=== PATIENT | female | born 1990 | race Caucasian/White ===

== ENCOUNTER 2016-08-14 08:32 | Outpatient (CLI) | payer OTHER | END 2016-08-14 08:33 | disposition home or self-care (01) | DX: M22.42 Chondromalacia patellae, left knee (principal) ==

== ENCOUNTER 2017-12-29 19:54 | Emergency (ER) | payer OTHER ==
[2017-12-29 20:16] LABS: BILIRUBIN,URINE NEGATIVE (NEGATIVE); GLUCOSE, URINE (UA) NEGATIVE (NEGATIVE); KETONES,URINE (UA) NEGATIVE (NEGATIVE); LEUKOCYTE ESTERASE, URINE SMALL (NEGATIVE); NITRITE,URINE POSITIVE (NEGATIVE); OCCULT BLOOD,URINE LARGE (NEGATIVE); PROTEIN,URINE 100 mg/dL (NEGATIVE); UROBILINOGEN,URINE 0.2 (NORMAL) E.U./dL (NORMAL)
[2017-12-29 20:30] LABS: CLARITY,URINE HAZY (CLEAR)
[2017-12-29 20:31] LABS: HCG UR QUAL NEGATIVE
[2017-12-29 20:32] LABS: BACTERIA,URINE Few /HPF (None Seen); RBC,URINE TNTC /HPF (0-5); SQUAMOUS EPITHELIAL CELL,UR FEW Squamous (<= Few)
[2017-12-29] MEDS ORDERED: cefTRIAXone 1 GM VIAL IM STA (21:00)
[2017-12-29] MEDS ORDERED: LIDOCAINE 1% 2 ML VIAL SUBQ ONE (21:00)
--- NOTE | 2017-12-29 21:02 | ED Physician Documentation ---
PD HPI FEMALE - Stated complaint Stated Complaint: FEM G/NAUSEATED - Chief complaint Chief Complaint: UTI - History obtained from History obtained from: Patient - History of Present Illness Timing - onset: How many days ago (4) Timing - duration: Days (4) Timing - details: Abrupt onset Pain level max: 7 Pain level max: 5 Associated symptoms: Fever (chills), Dysuria, Urinary frequency, Hematuria Contributing factors: No: , Exposed to STD Similar symptoms before: Diagnosis (UTI) Review of Systems Constitutional: denies: Fever Nose: denies: Rhinorrhea / runny nose, Congestion Skin: denies: Rash Musculoskeletal: denies: Neck pain, Back pain Neurologic: denies: Headache PD PAST MEDICAL HISTORY - Past Medical History Past Medical History: Yes Cardiovascular: None Respiratory: None Endocrine/Autoimmune: None GI: None : None HEENT: None Psych: None Musculoskeletal: Other Derm: None - Past Surgical History Past Surgical History: Yes General: Cholecystectomy, Appendectomy HEENT: Tonsil/Adenoidectomy - Present Medications Home Medications: Ambulatory Orders Medication Instructions Recorded Confirmed Acetaminophen [Tylenol] 650 mg PO Q6H PRN 04/17/14 04/19/14 Cetirizine HCl [Zyrtec] 10 mg PO DAILY 04/17/14 04/19/14 Multivitamin [Multivitamins] 1 each PO DAILY 04/17/14 04/19/14 Ibuprofen [Motrin] 400 mg PO Q6H 04/19/14 04/19/14 Cefdinir 300 mg PO BID #20 capsule 12/29/17 - Allergies Allergies/Adverse Reactions: Allergies Allergy/AdvReac Type Severity Reaction Status Date / Time clindamycin Allergy Anaphylaxis Verified 12/29/17 20:03 Penicillins Allergy Unknown Verified 12/29/17 20:03 Sulfa (Sulfonamide Allergy Itching Verified 12/29/17 20:03 Antibiotics) - Social History Does the pt smoke?: Yes Smoking Status: Current every day smoker Does the pt drink ETOH?: Yes Does the pt have substance abuse?: No - Immunizations Immunizations are current?: Yes - POLST Patient has POLST: No PD ED PE NORMAL - Vitals Vital signs reviewed: Yes - General General: Alert and oriented X 3, No acute distress - HEENT HEENT: Moist mucous membranes - Neck Neck: Supple, no meningeal sign - Cardiac Cardiac: RRR - Respiratory Respiratory: No respiratory distress, Clear bilaterally - Abdomen Abdomen: Soft, Non tender, Non distended - Back Back: No CVA TTP, No spinal TTP - Derm Derm: Warm and dry - Neuro Neuro: Alert and oriented X 3 Results - Vitals Vitals: Oxygen O2 Source Room air - Labs Labs: Microbiology 12/29/17 20:07 Urine Culture - Final Urine,Clean Catch LESS THAN 10,000 COLONIES/ML polymicrobial growth including potential pathogens. This is suggestive of skin or other contamination. Laboratory Tests 12/29/17 12/29/17 20:07 20:10 Urine Color YELLOW Urine Clarity HAZY Urine pH 6.0 Ur Specific [place] 1.020 1.020 Urine Protein 100 H Urine Glucose (UA) NEGATIVE Urine Ketones NEGATIVE Urine Occult Blood LARGE H Urine Nitrite POSITIVE H Urine Bilirubin NEGATIVE Urine Urobilinogen 0.2 (NORMAL) Ur Leukocyte Esterase SMALL H Urine RBC TNTC H Urine WBC >25 H Ur Squamous Epith Cells FEW Squamous Urine Bacteria Few Ur Microscopic Review INDICATED Urine Culture Comments INDICATED Urine HCG, Qual NEGATIVE PD MEDICAL DECISION MAKING - ED course Complexity details: reviewed results, re-evaluated patient, considered differential, d/w patient ED course: Patient is a 27-year-old female who presents to the emergency department with what appears to be a UTI. She is having some chills, concern for possible ascending infection, therefore treated with Rocephin here and will place on antibiotics for home. She is well-appearing, nontoxic. Patient counseled regarding signs and symptoms for which I believe and urgent re-evaluation would be necessary. Patient with good understanding of and agreement to plan and is comfortable going home at this time This document was made in part using voice recognition software. While efforts are made to proofread this document, sound alike and grammatical errors may occur. - Sepsis Event Vital Signs: Oxygen O2 Source Room air Departure - Departure Disposition: 01 Home, Self Care Clinical Impression: Urinary tract infection Qualifiers: Urinary tract infection type: acute cystitis Hematuria presence: with hematuria Qualified Code(s): N30.01 - Acute cystitis with hematuria Condition: Good Instructions: ED UTI Cystitis Female Follow-Up: your,doctor in 1 week if not better [Other] Prescriptions: Cefdinir 300 mg PO BID #20 capsule Comments: Return if you worsen. Take all antibiotics until gone. Discharge Date/Time: 12/29/17 21:44
[2017-12-29 21:45] VITALS: BP 136/91
== END 2017-12-29 21:44 | disposition home or self-care (01) ==
LOC: ED 19:54
DX: N30.01 Acute cystitis with hematuria (principal); F17.200 Nicotine dependence, unspecified, uncomplicated
CPT/HCPCS: 81001; 81003; 81025; 87086; 96372; 99283

== ENCOUNTER 2018-05-29 17:45 | Emergency (ER) | payer OTHER ==
[2018-05-29] MEDS ORDERED: ONDANSETRON ODT 4 MG TABLET TL STA (18:28)
[2018-05-29] MEDS ORDERED: MECLIZINE 12.5 MG TABLET PO STA (18:28)
--- NOTE | 2018-05-29 18:30 | ED Physician Documentation ---
PD HPI FOCAL NEURO - Stated complaint Stated Complaint: DIZZY, NAUSEOUS, VOMITING, CAN'T FOCUS TO SEE - Chief complaint Chief Complaint: Neuro - History obtained from History obtained from: Patient - History of Present Illness Timing - onset: Today (She has had occasional dizziness like this in the past but for the last 2 hours she has had severe spinning vertigo with fullness in the right ear and vomiting.) Review of Systems Constitutional: denies: Fever, Chills Ears: denies: Loss of hearing, Ear pain Nose: denies: Rhinorrhea / runny nose, Congestion Throat: denies: Sore throat PD PAST MEDICAL HISTORY - Past Medical History Cardiovascular: None Respiratory: None Endocrine/Autoimmune: None GI: None : None HEENT: None Psych: None Musculoskeletal: Other Derm: None - Past Surgical History Past Surgical History: Yes General: Cholecystectomy, Appendectomy HEENT: Tonsil/Adenoidectomy - Present Medications Home Medications: Ambulatory Orders Medication Instructions Recorded Confirmed Cetirizine HCl [Zyrtec] 10 mg PO DAILY 04/17/14 04/19/14 Multivitamin [Multivitamins] 1 each PO DAILY 04/17/14 04/19/14 Meclizine HCl 25 mg PO Q6H PRN #20 tab.chew 05/29/18 Ondansetron Odt [Zofran] 4 mg TL Q6H PRN #10 tablet 05/29/18 - Allergies Allergies/Adverse Reactions: Allergies Allergy/AdvReac Type Severity Reaction Status Date / Time clindamycin Allergy Anaphylaxis Verified 05/29/18 17:54 Penicillins Allergy Unknown Verified 05/29/18 17:54 Sulfa (Sulfonamide Allergy Itching Verified 05/29/18 17:54 Antibiotics) - Social History Does the pt smoke?: Yes Smoking Status: Current every day smoker Does the pt drink ETOH?: Yes Does the pt have substance abuse?: No - Immunizations Immunizations are current?: Yes - POLST Patient has POLST: No PD ED PE NORMAL - Vitals Vital signs reviewed: Yes - General General: Alert and oriented X 3, No acute distress - HEENT HEENT: PERRL, EOMI, Other (She has nystagmus on leftward gaze) - Neck Neck: Supple, no meningeal sign, No bony TTP - Neuro Neuro: Alert and oriented X 3, fish header 2-12 intact Eye Opening: Spontaneous Motor: Obeys Commands Verbal: Oriented GCS Score: 15 - Psych Psych: Normal mood, Normal affect Results - Vitals Vitals: Vital Signs - 24 hr 05/29/18 17:51 Temperature 35.8 C L Heart Rate 98 Respiratory 16 Rate Blood Pressure 143/102 H O2 Saturation 99 Oxygen O2 Source Room air PD MEDICAL DECISION MAKING - ED course ED course: After the administration of meclizine and Zofran she was feeling somewhat better and then an Suzi maneuver was done starting with the right ear down with cure. Departure - Departure Disposition: Home, Self Care Clinical Impression: BPPV (benign paroxysmal positional vertigo) Qualifiers: Laterality: right Qualified Code(s): H81.11 - Benign paroxysmal vertigo, right ear Condition: Good Record reviewed to determine appropriate education?: Yes Instructions: Vertigo Paroxysmal Positional Follow-Up: Ameya Guerrero MD [Provider Admit Priv/Credential] - Beatriz Delgadillo MD [Provider Admit Priv/Credential] - Prescriptions: Meclizine HCl 25 mg PO Q6H PRN #20 tab.chew PRN Reason: Dizziness Ondansetron Odt [Zofran] 4 mg TL Q6H PRN #10 tablet PRN Reason: Nausea / Vomiting Comments: As discussed, would be useful here to follow-up with ears nose and throat physician. The closest is in [place]. The phone number is [phone].
[2018-05-29 19:38] VITALS: BP 114/71
== END 2018-05-29 19:39 | disposition home or self-care (01) ==
LOC: ED 17:45
DX: H81.11 Benign paroxysmal vertigo, right ear (principal); F17.200 Nicotine dependence, unspecified, uncomplicated
CPT/HCPCS: 99283; A9270; Q0162

== ENCOUNTER 2018-12-03 14:58 | Outpatient (CLI) | payer OTHER ==
--- NOTE | 2018-12-03 16:19 | CT Report ---
Reason: DIZZINESS AND GIDDINESS Procedure Date: 12/03/2018 Accession Number: [id number] / [id number] Procedure: CT - IAC'S WO CPT Code: 18345 FULL RESULT: EXAM: CT TEMPORAL BONE EXAM DATE: 12/03/2018 03:14 PM. CLINICAL HISTORY: Dizziness and giddiness. COMPARISON: None. TECHNIQUE: Routine axial CT imaging performed through the temporal bones. This study was protocoled on site using the institution's protocol.. IV contrast: None. In accordance with CT protocol optimization, one or more of the following dose reduction techniques were utilized for this exam: automated exposure control, adjustment of mA and/or KV based on patient size, or use of iterative reconstructive technique. FINDINGS: Right temporal bone: The right internal auditory canal is normal in appearance. The right labyrinthine segment, geniculate ganglion, tympanic and mastoid segments of the right facial nerve are normal in appearance. The right mastoid air cells, mastoid antrum, aditus ad antrum and the right middle ear cavity are normally aerated. The right auditory ossicles appear to be in normal position without evidence of ossicular erosion. The right tympanic membrane is without evidence of thickening or perforation. The right external auditory canal is normal in appearance. The scutum and tympanic annulus are without evidence of erosion. Prussak's space is normally aerated. The right sigmoid plate is intact. The right vestibular aqueduct is normal in appearance. There are 2-1/2 half turns of the right cochlea. The modiolus is normal in appearance. The vestibule is normal in appearance. There is a normal bony cap overlying the right superior semicircular canal. Left temporal bone: The left internal auditory canal is normal in appearance. The left labyrinthine segment, geniculate ganglion, tympanic and mastoid segments of the left facial nerve are normal in appearance. The left mastoid air cells, mastoid antrum, aditus ad antrum and the left middle ear cavity are normally aerated. The left auditory ossicles appear to be in normal position without evidence of ossicular erosion. The left tympanic membrane is without evidence of thickening or sclerosis. Prussak's space is normally aerated. The left scutum and tympanic annulus appear to be without evidence of erosion. There are 2-1/2 turns of the left cochlea. The modiolus is normal in appearance. The vestibule is normal in appearance. There is a normal bony cap overlying the left superior semicircular canal. IMPRESSION: 1. Normal right and left temporal bones.
== END 2018-12-03 14:59 | disposition home or self-care (01) ==
LOC: DI 14:58
PROVIDERS: ATTEND Otolaryngology
DX: R42 Dizziness and giddiness (principal)
CPT/HCPCS: 70480

== ENCOUNTER 2018-12-08 16:38 | Outpatient (CLI) | payer OTHER ==
[2018-12-08] MEDS ORDERED: GADOBUTROL 10 MMOL/10 ML VIAL ONE (17:12)
[2018-12-08] MEDS ORDERED: GADOBUTROL 10 MMOL/10 ML VIAL IVP ONE (17:44)
--- NOTE | 2018-12-09 17:44 | MRI Report ---
Reason: DIZZINESS AND GIDDINESS Procedure Date: 12/08/2018 Accession Number: [id number] / [id number] Procedure: MRI - IACS W/WO CPT Code: FULL RESULT: MRI BRAIN AND INTERNAL AUDITORY CANALS INDICATION: 28 -year-old female. Dizziness and giddiness. TECHNIQUE: Imaging of the brain and internal auditory canals has been performed. The following sequences were obtained Brain 1. Sagittal T1 FLAIR 2. Axial T1 3D, FLAIR, T2* GRE and DWI. 3. 8 cc of IV Gadavist. T1 3D MP RAGE axial. Internal auditory canals 1. Thin slice, high-resolution balanced FFE axial. 2. Thin slice, fat saturated T2 coronal. 3. Thin slice, postcontrast, fat-saturated T1 axial. COMPARISON: None. FINDINGS: Internal auditory canals On the balanced FFE sequence, the vestibulocochlear nerve bundles are well seen in the CP angle cisterns and internal auditory canals bilaterally. No focal mass lesion is demonstrated. There appear to be normal fluid-filled spaces in the distribution of the cochlea, vestibules, and semicircular canals bilaterally. There is no dehiscence of either superior semicircular canal. No abnormal enlargement of either endolymphatic duct or sac is demonstrated. No enhancing CP angle or internal auditory canal mass lesion is demonstrated. No abnormal enhancement is seen in either labyrinth. Brain The cerebellar tonsils are low lying and project into the foramen magnum. The right tonsil descends below the plane of the foramen magnum for about 4.5 mm. It has a slightly triangular-shaped configuration. However, the left tonsil does not descend below the plane of the foramen magnum and it has a more normal rounded configuration. The findings do not appear to meet criteria for diagnosis of a Chiari I malformation. Ventricular size is normal. The signal intensity of cortex and white matter appears normal throughout. There appear to be flow voids for the main intracranial arteries. No abnormal diffusion restriction is demonstrated. No evidence of acute or chronic hemorrhage on T2* GRE sequence. No enhancing intra-axial or extra-axial mass lesion is demonstrated. No pathologic meningeal or cranial nerve enhancement is identified. There appears to be normal intravascular contrast enhancement in the dural venous sinuses and deep venous structures. This effectively excludes the possibility of dural venous sinus thrombosis. Limited assessment of the orbits reveals no gross pathology. The paranasal sinuses are essentially clear. No significant mastoid or middle ear effusion is demonstrated. IMPRESSION: 1. Normal MRI examination of the internal auditory canals. In particular, there is no evidence of a vestibular schwannoma. 2. There is mild cerebellar tonsillar ectopia described. The findings do not appear to meet criteria for diagnosis of a Chiari I malformation (see discussion above). 3. Imaging of the brain is otherwise normal.
== END 2018-12-08 16:39 | disposition home or self-care (01) ==
LOC: DI 16:38
PROVIDERS: ATTEND Otolaryngology
DX: R42 Dizziness and giddiness (principal)
CPT/HCPCS: 70543; A9585

== ENCOUNTER 2019-07-26 12:14 | Outpatient (CLI) | payer OTHER | END 2019-07-26 12:15 | disposition home or self-care (01) | LOC: COV 12:14 | PROVIDERS: ATTEND Family Medicine | DX: R05 Cough (principal); R50.9 Fever, unspecified | CPT/HCPCS: 81599 ==

== ENCOUNTER 2020-03-27 12:46 | Outpatient (CLI) | payer OTHER | END 2020-03-27 12:47 | disposition home or self-care (01) | LOC: COV 12:46 | PROVIDERS: ATTEND Family Medicine | DX: R50.9 Fever, unspecified (principal); R05 Cough; R53.83 Other fatigue; R19.7 Diarrhea, unspecified; R09.81 Nasal congestion; R11.2 Nausea with vomiting, unspecified; Z20.828 Contact with and (suspected) exposure to other viral communicable diseases ==

== ENCOUNTER 2020-05-17 16:11 | Outpatient (CLI) | payer OTHER | END 2020-05-17 16:12 | disposition home or self-care (01) | LOC: COV 16:11 | PROVIDERS: ATTEND Family Medicine | DX: R50.9 Fever, unspecified (principal); Z20.822 Contact with and (suspected) exposure to COVID-19; R05 Cough; R06.02 Shortness of breath; R53.83 Other fatigue; J02.9 Acute pharyngitis, unspecified; R19.7 Diarrhea, unspecified; R43.9 Unspecified disturbances of smell and taste; R09.81 Nasal congestion ==

== ENCOUNTER 2020-12-31 16:42 | Outpatient (CLI) | payer OTHER | END 2020-12-31 16:43 | disposition home or self-care (01) | LOC: COV 16:42 | PROVIDERS: ATTEND Family Medicine | DX: R50.9 Fever, unspecified (principal); R05 Cough; M79.10 Myalgia, unspecified site; R53.83 Other fatigue; R43.8 Other disturbances of smell and taste; Z20.822 Contact with and (suspected) exposure to COVID-19 ==

== ENCOUNTER 2021-08-22 18:14 | Emergency (ER) | payer OTHER ==
--- NOTE | 2021-08-22 19:01 | ED Physician Documentation ---
History of Present Illness - Stated complaint Stated Complaint: EXPOSURE - Chief complaint Chief Complaint: Wound - Additonal information Additional information: 30-year-old female presents emergency department for evaluation of concern of i nfection in her left breast. Reports that 48 hours ago she had a superficial pimple which she popped. Following that she had some progressive erythema and pain. She did see [facility] this afternoon and was started on doxycycline. She took her first dose about 2 hours ago. Following that she began to feel palpitations increased pain in the breast and worsening anxiety therefore she comes immediately to the ER. She denies any fevers. No history of breast infection or mastitis in the past. She is not breast- feeding. She is uncertain of her family history for breast cancer or masses. No nipple drainage Review of Systems Constitutional: denies: Fever, Chills Nose: reports: Reviewed and negative Throat: reports: Reviewed and negative Cardiac: reports: Reviewed and negative GI: reports: Reviewed and negative Skin: reports: Lesions Musculoskeletal: reports: Reviewed and negative PD PAST MEDICAL HISTORY - Past Medical History Past Medical History: No Cardiovascular: None Respiratory: None Endocrine/Autoimmune: None GI: None : None HEENT: None Psych: None Musculoskeletal: Other Derm: None - Past Surgical History Past Surgical History: Yes General: Cholecystectomy, Appendectomy HEENT: Tonsil/Adenoidectomy - Present Medications Home Medications: Ambulatory Orders Medication Instructions Recorded Confirmed Multivitamin [Multivitamins] 1 each PO DAILY 04/17/14 08/22/21 Calcium Carbonate [Calcium] 600 mg PO DAILY 08/22/21 08/22/21 Escitalopram Oxalate [Lexapro] 5 mg PO DAILY 08/22/21 08/22/21 Lisdexamfetamine Dimesylate 30 mg PO DAILY 08/22/21 08/22/21 [Vyvanse] - Allergies Allergies/Adverse Reactions: Allergies Allergy/AdvReac Type Severity Reaction Status Date / Time clindamycin Allergy Anaphylaxis Verified 08/22/21 18:24 Penicillins Allergy Unknown Verified 08/22/21 18:24 Sulfa (Sulfonamide Allergy Itching Verified 08/22/21 18:24 Antibiotics) - Social History Does the pt smoke?: Yes Smoking Status: Current every day smoker Does the pt drink ETOH?: Yes Does the pt have substance abuse?: No - Immunizations Immunizations are current?: Yes - POLST Patient has POLST: No PD ED PE EXPANDED - General General: Alert, No acute distress, Anxious - Cardiac Cardiac: Regular Rate, Tachy, Radial strong equal, Pedal strong equal, Cap refill < 2 sec, Other (Chaperoned breast exam reveals a left lateral carbuncle at 3:00. Very small amount of surrounding erythema without active drainage. No significant breast tenderness axillary lymphadenopathy. No nipple inversion or drainage. Breasts are symmetrical in size.) - Respiratory Respiratory: Clear to ausultation linda. No: Distress, Labored - Abdomen Abdomen: Normal Bowel sounds. No: Tender to palpation Results - Vitals Vitals: Vital Signs - 24 hr 08/22/21 18:25 Temperature 37.0 C Heart Rate 125 H Respiratory 19 Rate Blood Pressure 138/105 H O2 Saturation 99 Oxygen O2 Source Room air - Rads (name of study) limited breast US Radiology: Final report received (No abscess formation) PD MEDICAL DECISION MAKING - ED course Complexity details: reviewed results, re-evaluated patient, considered differential, d/w patient ED course: 30-year-old female presents emergency department concerned that she may have o verwhelming mastitis in her left breast. She popped a pimple there 2 days ago. She started doxycycline this afternoon. While at home she began to feel flushed have increased pain and then reportedly had a panic attack that she presents to the ER. On exam she does have a very small left breast carbuncle with a minimal amount of erythema no palpable abscess was felt and no fluid drained. A limited breast ultrasound did not reveal an abscess collection. 9 she was started on doxycycline today which should be appropriate staph and strep coverage. Patient is encouraged warm compress continuation of antibiotics. Will return to the ER if symptoms markedly worse Departure - Departure Disposition: 01 Home, Self Care Clinical Impression: Mastitis of left breast unrelated to or Condition: Stable Record reviewed to determine appropriate education?: Yes Comments: Marla you reported that you had a small pimple on your left breast that you ruptured a few days ago. Now you have a superficial infection in this area. The ultrasound does not show an abscess or fluid collection. Doxycycline is an appropriate antibiotic. I recommend that you continue to take twice daily as prescribed. A warm compress over the area of redness and tenderness should be placed 2-3 times a day. In general the warm compress and antibiotic should make your breast feel much better over the next 48 to 72 hours. If despite this treatment you are having worsening pain, fevers swelling any milky drainage or increased redness then please return to the ER for a second evaluation
[2021-08-22 20:23] VITALS: BP 107/69
--- NOTE | 2021-08-22 21:22 | Ultrasound Report ---
PROCEDURE: Breast Unilateral Limited INDICATIONS: Early mastitis. Evaluate for abscess TECHNIQUE: Targeted ultrasound of the left lateral breast, upper outer quadrant and lower outer quad rant. COMPARISON: None. FINDINGS: No fluid collection. No mass. No cyst. IMPRESSION: No abscess in the left lateral breast. Consider follow-up ultrasound if symptoms worsen. Reviewed by: Ernesto Do MD on 08/22/2021 9:20 PM PDT Approved by: Ernesto Do MD on 08/22/2021 9:20 PM PDT Station ID: [id number]
== END 2021-08-22 20:29 | disposition home or self-care (01) ==
LOC: ED 18:14
DX: N61.0 Mastitis without abscess (principal); F17.200 Nicotine dependence, unspecified, uncomplicated
CPT/HCPCS: 99282; 99284